=== PATIENT | female | born 1960 | race Caucasian/White ===

== ENCOUNTER 2017-09-08 11:24 | Day surgery (SDC) | payer OTHER, SELFPAY ==
--- NOTE | 2017-09-08 | PATH_ITS ---
[facility] Accession Number: [id number] . 01 Material submitted: . POLYP AT 25CM . 02 Diagnosis: Colon, Polyp at 25 cm, Biopsy: Hyperplastic polyp. [facility]/09/10/2017 . 02 Electronically signed: . Annel Galindo MD, Pathologist NPI- [id number] . 01 Gross description: . POLYP AT 25CM: Received in formalin are 2 fragment(s) of reeves, soft tissue measuring 0.4 x 0.2 x 0.1 cm to 0.3 x 0.2 x 0.1 cm submitted entirely in 1 cassette(s) /TRC /TRC . 02 Pathologist provided ICD-10: K63.5 . 02 CPT . 538399 Performed at: 01 [facility] [address] [facility], [place], [place] [id number] MD Rafiq Henning MD Phone: [phone] Performed at: 02 [facility] [address] [place], [place] [id number] MD Luis Heredia MD Phone: [phone]
[2017-09-08 11:45] VITALS: BP 144/86; PULSE 55; RESP 15; TEMP 36.4; O2SAT 97; BMI 36.1
--- NOTE | 2017-09-08 13:18 | PM.HP.1 ---
History of Present Illness Chief complaint: colonoscopy [id number] Narrative: Clare Appiah is a 56 year old female who presents today for screening colonoscopy. She has a strong family history of colon cancer affecting her brother who at the age of 36 with the disease. She also has multiple other family members who have with colon cancer. She denies any problems or symptoms related to the function of her GI tract. Her last colonoscopy was 5 years ago and benign polyps were removed at that time. Patient History Family & Social History Family History: Reviewed 09/08/17 by Roshni Ayala MD Social History: household members spouse Prior Living Arrangements House Meds Home Medications Medication Instructions Recorded Confirmed Type atenolol 25 mg PO BID 09/08/17 09/08/17 History Allergies Allergy/AdvReac Type Severity Reaction Status Date / Time cephalexin [From KEFLEX] Allergy Severe THROAT Unverified 07/22/17 12:12 SWELLS Penicillins [PENICILLINS] Allergy Severe THROAT Unverified 07/22/17 12:12 SWELLS codeine [CODEINE] Allergy Intermediate GIVES HER Unverified 07/22/17 12:12 A MIGRAINE bee venom protein (honey bee) Allergy Unknown Unverified 07/22/17 12:12 [BEE VENOM PROTEIN (HONEY BEE)] Fish Containing Products Allergy Unknown Unverified 07/22/17 12:12 [FISH CONTAINING PRODUCTS] levofloxacin [From LEVAQUIN] Allergy Unknown Unverified 07/22/17 12:12 verapamil [VERAPAMIL] Allergy Unknown Unverified 07/22/17 12:12 Review of Systems Review of Systems All systems reviewed & are unremarkable except as noted in HPI and below Exam Vital Signs (past 8 hours): Vital Signs - 8 hr 09/08/17 11:45 Temperature 97.5 F L Pulse Rate 55 L Respiratory Rate 15 Blood Pressure 144/86 H Pulse Oximetry 97 Pulse Oximetry 97 Oxygen Delivery Method Room Air Narrative Exam Narrative: Very pleasant lady in no obvious distress. HEENT: Normocephalic and atraumatic, pupils equal round reactive to light accommodation with anicteric sclera. Lungs: Clear to auscultation bilaterally Heart: Regular rate and rhythm Abdomen: Soft, nontender, active bowel sounds. Extremities: Warm well perfused Assessment & Plan Plan: Plan: Very pleasant and generally healthy 56-year-old lady with a personal history of colon polyps and a family history of colon cancer in 1st and second-degree relatives. We have discussed the risks and benefits of colonoscopy the patient expressed desire to have the procedure today.
--- NOTE | 2017-09-08 13:22 | P.HP_ITS ---
History of Present Illness Chief complaint: colonoscopy [id number] Narrative: Clare Appiah is a 56 year old female who presents today for screening colonoscopy. She has a strong family history of colon cancer affecting her brother who at the age of 36 with the disease. She also has multiple other family members who have with colon cancer. She denies any problems or symptoms related to the function of her GI tract. Her last colonoscopy was 5 years ago and benign polyps were removed at that time. Patient History Family & Social History Family History: Reviewed 09/08/17 by Roshni Ayala MD Social History: household members spouse Prior Living Arrangements House Meds Home Medications Medication Instructions Recorded Confirmed Type atenolol 25 mg PO BID 09/08/17 09/08/17 History Allergies Allergy/AdvReac Type Severity Reaction Status Date / Time cephalexin [From KEFLEX] Allergy Severe THROAT Unverified 07/22/17 12:12 SWELLS Penicillins [PENICILLINS] Allergy Severe THROAT Unverified 07/22/17 12:12 SWELLS codeine [CODEINE] Allergy Intermediate GIVES HER Unverified 07/22/17 12:12 A MIGRAINE bee venom protein (honey bee) Allergy Unknown Unverified 07/22/17 12:12 [BEE VENOM PROTEIN (HONEY BEE)] Fish Containing Products Allergy Unknown Unverified 07/22/17 12:12 [FISH CONTAINING PRODUCTS] levofloxacin [From LEVAQUIN] Allergy Unknown Unverified 07/22/17 12:12 verapamil [VERAPAMIL] Allergy Unknown Unverified 07/22/17 12:12 Review of Systems Review of Systems All systems reviewed & are unremarkable except as noted in HPI and below Exam Vital Signs (past 8 hours): Vital Signs - 8 hr 3 09/08/17 11:45 Temperature 97.5 F L Pulse Rate 55 L Respiratory Rate 15 Blood Pressure 144/86 H Pulse Oximetry 97 Pulse Oximetry 97 Oxygen Delivery Method Room Air Narrative Exam Narrative: Very pleasant lady in no obvious distress. HEENT: Normocephalic and atraumatic, pupils equal round reactive to light accommodation with anicteric sclera. Lungs: Clear to auscultation bilaterally Heart: Regular rate and rhythm Abdomen: Soft, nontender, active bowel sounds. Extremities: Warm well perfused Assessment & Plan Plan: Plan: Very pleasant and generally healthy 56-year-old lady with a personal history of colon polyps and a family history of colon cancer in 1st and second-degree relatives. We have discussed the risks and benefits of colonoscopy the patient expressed desire to have the procedure today.
[2017-09-08] MEDS: fentaNYL 250 MCG/5 ML INJ IV (13:26)
--- NOTE | 2017-09-08 13:46 | PM.OP.1 ---
Operative Date/Time/Diagnoses - Date of procedure: 09/08/17 Time of procedure: 13:46 Pre-op diagnosis: Screening Personal history of colon polyps Family history of colon cancer in first-degree relative Post-op diagnosis: same Procedure & Clinicians Procedure: Colonoscopy to the cecum with polypectomy x1 Same procedure as scheduled: Yes Indications: Last colonoscopy 5 years ago Surgeon: Roshni Ayala Click Yes if Unassisted: Yes Anesthesia Type: Sedation (Versed 5 mg; fentanyl 150 mcg) Operative Notes Findings: 1. Excellent prep 2. A single sessile polyp at 25 cm from the anal verge covered with mucous 3. Significant diverticulosis in the sigmoid colon with most concentrated disease at the junction of descending and sigmoid colons 4. Otherwise normal colonic mucosa 5. Grade 1 internal hemorrhoids Closure Type: not applicable Estimated Blood Loss (mL): 1 Procedure in detail: After obtaining informed consent, the patient was brought to the GI suite and placed in the left lateral decubitus position on the examination table. After placement of appropriate monitors, the patient was given incremental doses of Versed and Fentanyl until an appropriate level of sedation was achieved. A time out was held per SCOAP protocol. A digital rectal examination was performed and did not reveal any masses or obstructing lesions. The colonoscope was gently passed into the patient's anus and the entire colon navigated to the level of the cecum with minimal difficulty. Once in the cecum, the scope was withdrawn being sure to go before and beyond all mucosal folds and prominences and get an excellent examination. The findings are noted above. At the level of the rectal vault, the scope was retroflexed and the internal anal canal was examined. The scope was straightened and air aspirated from the colon. The instrument was removed from the patient's body and the procedure was concluded. The patient was allowed to awaken from sedation without difficulty and taken to the post-anesthesia care unit in good condition. Total sedation time 24 min Total withdrawal time 9 min Complications: none Condition: stable Disposition: PACU Plan for aftercare: 1. Discharge to home 2. Plan for next colonoscopy in 5 years or as clinically indicated
[2017-09-08 13:56] VITALS: BP 113/76; PULSE 65; RESP 16; TEMP 37.5; O2SAT 96
[2017-09-08 14:10] VITALS: BP 113/76; PULSE 65; RESP 16; TEMP 37.5; O2SAT 96
== END 2017-09-08 14:21 | disposition home or self-care (01) ==
PROVIDERS: Family Provider Family Medicine; PCP Family Medicine; Visit Provider Surgery
PROC: 0DJD8ZZ Inspection of Lower Intestinal Tract, Via Natural or Artificial Opening Endoscopic (ICD-10-PCS; CPT 45378; principal; 2017-09-08 13:00)
DX: Z12.11 Encounter for screening for malignant neoplasm of colon (principal); Z86.010 Personal history of colon polyps; Z80.0 Family history of malignant neoplasm of digestive organs; K64.0 First degree hemorrhoids; K57.30 Diverticulosis of large intestine without perforation or abscess without bleeding; D12.5 Benign neoplasm of sigmoid colon
CPT/HCPCS: 45380; 99152; 99153; J3010

== ENCOUNTER → 2017-09-23 08:40 | Outpatient (CLI) | payer OTHER, SELFPAY ==
--- NOTE | 2017-09-23 | DI.CT.S_ITS ---
PROCEDURE: CT SOFT TISSUE NECK WO CON INDICATIONS: LUMP IN NECK TECHNIQUE: , By the request of the referring physician. Non-contrast 3.0 mm axial sections acquired from the sella to the aortic arch. Additional oblique axial 3.0 mm sections acquired through the pharynx. 3 mm thick coronal and sagittal reformats were generated. For radiation dose reduction, the following was used: automated exposure control. COMPARISON: [facility], , C-SPINE W&WO CONTRAST, 03/04/2017, 16:00. FINDINGS: Image quality: Excellent. Lymph nodes: No enlarged lymph nodes seen throughout the neck. Vessels: Non-opacified vessels appear normal in caliber. Neck spaces: The area of clinical concern for a mass involving the left lateral neck is marked by a skin marker. Immediately deep to this marker, there is a focus of encapsulated fat that measures 2.1 x 0.7 cm in greatest axial dimension. Small lymph nodes can also be seen within this region, yet without enlargement or suspicious features. The oropharynx, nasopharynx, and pharynx demonstrate no mucosal lesions. The vocal cords, false vocal cords, pyriform sinuses, epiglottis, vallecula, and tongue base all appear normal. Extramucosal spaces appear unremarkable. Glands: The parotid and submandibular glands appear normal, without stones. Thyroid gland demonstrates no significant noncontrast abnormality. Miscellaneous: Visualized brain and orbits appear normal. Lung apices appear clear. Superficial soft tissues appear normal. 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 Dictated by: Cm Wakefield M.D. on 09/23/2017 at 8:46 Approved by: Cm Wakefield M.D. on 09/23/2017 at 8:51
== END ==
PROVIDERS: Family Provider Family Medicine; PCP Family Medicine; Visit Provider Family Medicine
DX: D17.0 Benign lipomatous neoplasm of skin and subcutaneous tissue of head, face and neck (principal)
CPT/HCPCS: 70490; Q9967

== ENCOUNTER → 2018-02-09 10:00 | Outpatient (CLI) | payer OTHER, SELFPAY ==
--- NOTE | 2018-02-09 | DI.CT.S_ITS ---
PROCEDURE: CT CHEST WO CON INDICATIONS: SOLITARY PULMONARY NODULE TECHNIQUE: Noncontrast 2.0-2.5 mm thick sections acquired from the pulmonary apices to the posterior costophrenic angles. 7 mm thick coronal and sagittal MIP reformats were then acquired. A low radiation dose technique was utilized. COMPARISON: [facility], CT, ABDOMEN/PELVIS WITH CONTRAST, 12/10/2008, 18:55. [facility], CT, CT-IVP, 02/27/2010, 9:09. [facility], CT, THORAX WITHOUT CONTRAST, 12/19/2014, 12:35. [facility], CT, THORAX WITHOUT CONTRAST, 01/22/2016, 8:36. [facility], CT, CT SOFT TISSUE NECK WO CON, 09/23/2017, 8:45. FINDINGS: Image quality: Diagnostic, given the low radiation dose technique. Lungs and pleura: There is a 4 mm nodule in the left lower lobe, unchanged since 02/27/2010, consistent with a benign nodule. There are inguinal scars and/or atelectasis. Mediastinum: Heart size is normal. No pericardial effusion. No mediastinal adenopathy by size criteria. Thoracic aorta and central pulmonary arteries are normal in size. Esophagus is normal in caliber. Tiny hiatal hernia. Bones and chest wall: No suspicious bony lesions. No vertebral body compression fractures. No axillary or supraclavicular adenopathy by size criteria. Thyroid gland is normal as visualized. Abdomen: Visualized upper abdomen solid organs and bowel loops appear normal in the absence of contrast. IMPRESSION: Stable 4 mm left lower lobe lung nodule is 2010, consistent with a benign nodule. No further followup suggested. Fleischner Society criteria for SOLID lung nodule followup. Nodule size (mm)Low-risk patientHigh-risk patient<6 (single or multiple)No routine followup.Optional CT at 12 months. 6-8 (single or multiple)CT at 6-12 months, then optional CT at 18-24 mo.CT at 6-12 months, then CT at 18-24 months. >8 (single)CT at 3 months, PET-CT, or biopsy. Same as for low-risk pts. >8 (multiple)CT at 3-6 months, then optional CT at 18-24 mo.CT at 3-6 months, then CT at 18-24 months. Fleischner Society criteria for SUB-SOLID lung nodule followup. Solitary pure ground-glass nodules<6 mm (ground glass or part solid)No followup needed. 6 mm or larger (ground glass)CT at 6-12 months to confirm persistence, then CT every 2 years until 5 years.6 mm or larger (part solid)CT at 3-6 months to confirm persistence, then annual CT until 5 years if unchanged and solid component remains <6 mm. Multiple sub-solid nodules<6 mmCT at 3-6 months, then CT consider at 2 & 4 years for high risk patients. [address] at 3-6 months. Subsequent management based on most suspicious lesions. Recommendations do not apply to lung cancer screening, patients with immunosuppression, or patients with known primary cancer. Dictated by: Shon Lanza M.D. on 02/09/2018 at 11:25 Approved by: Shon Lanza M.D. on 02/09/2018 at 11:31
== END ==
PROVIDERS: Family Provider Family Medicine; PCP Family Medicine; Visit Provider Family Medicine
DX: R91.1 Solitary pulmonary nodule (principal)
CPT/HCPCS: 71250; 99214

== ENCOUNTER → 2018-02-22 08:36 | Outpatient (CLI) | payer OTHER, SELFPAY ==
--- NOTE | 2018-02-22 08:37 | DI.MRI.S_ITS ---
PROCEDURE: MR HEAD/BRAIN WO/W CON INDICATIONS: New Daily Persistent TECHNIQUE: Noncontrast axial T1 spin echo, axial T2 fast spin echo, sagittal and axial FLAIR, coronal T2 fast spin echo, axial gradient echo, axial diffusion and ADC through the brain. After the administration of contrast, axial and coronal 3D VIBE or T1 spin echo with fat saturation through the brain. COMPARISON: [facility], MR, BRAIN W&WO CONTRAST, 03/04/2017, 16:00. [facility], CT, HEAD WITHOUT CONTRAST, 01/15/2015, 16:52. FINDINGS: Image quality: Excellent. CSF Spaces: Basal cisterns are patent. No extra-axial fluid collections. Ventricles are normal in size and shape. Brain: No midline shift. No intracranial bleeds or masses. No abnormal intracranial enhancement. The brainstem appears normal. Diffusion-weighted images demonstrate no acute ischemic insults. No chronic ischemic insults. Normal intravascular flow voids are present. Skull and face: Calvarial marrow is normal in signal. Orbits appear normal. Sinuses: Sinuses and mastoids appear clear. Incidental note is made of a right sided ebony bullosa, with mild leftward nasal septal deviation. IMPRESSION: No imaging explanation is found for this patient's presenting history of a persistent daily headache. No masses or abnormal enhancement can be seen. Dictated by: Cm Wakefield M.D. on 02/22/2018 at 10:51 Approved by: Cm Wakefield M.D. on 02/22/2018 at 10:53
== END ==
PROVIDERS: PCP Family Medicine; Visit Provider Specialist
DX: R51 Headache (principal)
CPT/HCPCS: 70553

== ENCOUNTER 2020-03-29 18:31 | Emergency (ER) | payer OTHER, MEDICAID, SELFPAY ==
[2020-03-29 18:35] VITALS: BP 180/87; PULSE 88; RESP 16; TEMP 37; O2SAT 100
[2020-03-29 21:04] LABS: Add Manual Diff / Slide Review NO; Basophils Absolute Auto 100 /uL (0-100); Basophils Percent Auto 1.1 % (0-2); Eosinophils Absolute Auto 100 /uL (0-450); Eosinophils Percent Auto 0.9 % (2-4); Hemoglobin 13.6 g/dL (12.0-16.0); Lymphocytes Absolute Auto 2100 /uL (1100-4500); Lymphocytes Percent Auto 22.4 % (25-40); Mean Corpuscular HGB Conc 33.1 % (30-36); Mean Corpuscular Hemoglobin 28.4 PG (26-34); Mean Corpuscular Volume 85.7 fL (80-100); Monocytes Absolute Auto 500 /uL (0-900); Monocytes Percent Auto 5.2 % (3-14); Neutrophils Absolute Auto 6700 /uL (1500-7000); Neutrophils Percent Auto 70.4 % (50-75); Platelet Count 243 X10^3/uL (150-400); Prothrombin Time 11.7 SECONDS (10.1-12.7); Red Blood Cell Count 4.78 X10^6/uL (4.0-5.2); Red Cell Distribution Width 13.1 % (11.6-14.8); White Blood Cell Count 9.5 X10^3/uL (4.5-11.0)
[2020-03-29 21:06] LABS: PTT Partial Thromboplastin Tim 33 SECONDS (26.4-36.2)
[2020-03-29 21:08] LABS: Alanine Aminotransferase 24 IU/L (<35); Albumin 4.2 g/dL (3.5-5.0); Albumin Globulin Ratio 1.4 (1.0-2.8); Alkaline Phosphatase 98 U/L (38-126); Aspartate Aminotransferase 28 IU/L (14-36); BUN Creatinine Ratio 14.7 (6-22); Bilirubin Total 0.3 mg/dL (0.2-1.3); Blood Urea Nitrogen 11 mg/dL (7-17); Calcium 9.4 mg/dL (8.4-10.2); Carbon Dioxide 31 mmol/L (22-32); Chloride 104 mmol/L (98-107); Estimated Glomerular Filt Rate > 60.0 mL/min (>60); Globulin 3.1 g/dL (1.7-4.1); Glucose 104 mg/dL (70-100); HEMOLYSIS < 15 (0-50); Lipase 59 U/L (23-300); Potassium 3.7 mmol/L (3.4-5.1); Sodium 139 mmol/L (137-145); Total Protein 7.3 g/dL (6.3-8.2)
--- NOTE | 2020-03-29 21:35 | DI.US.S_ITS ---
PROCEDURE: US ABDOMEN LIMITED INDICATIONS: Right upper quadrant pain TECHNIQUE: Real-time focused scanning was performed of the abdomen, with image documentation. COMPARISON: None. FINDINGS: There is sonographically normal. Gallbladder is sonographically normal. No gallstones. No gallbladder wall thickening with gallbladder wall measuring 2.5 millimeters. No pericholecystic fluid. No sonographic Fairchild sign. Biliary tree is nondilated. Common bile duct measures 2.4 millimeters. Scattered fatty infiltration in the pancreas. Pancreas is otherwise sonographically normal. No ascites. IMPRESSION: No sonographic evidence of cholelithiasis or cholecystitis. If there is continued clinical concern for cholecystitis, a nuclear medicine HIDA scan should be considered for further evaluation. Dictated by: Paige Morfin MD, PhD on 03/30/2020 at 7:03 Approved by: Paige Morfin MD, PhD on 03/30/2020 at 7:04
--- NOTE | 2020-03-29 21:35 | ED.ABDPAIN ---
HPI - Abdominal Pain General Chief Complaint: Abdominal Pain Stated Complaint: states abdominal issue Time Seen by Provider: 03/29/20 21:27 Source: patient and family Mode of arrival: Ambulatory History of Present Illness HPI narrative: Patient here with . Complains of constant right upper quadrant pain worse with eating. Ongoing 1 week. Radiates to the right shoulder and right middle back. Nausea but no vomiting. No cough cold congestion or fever chills. No diarrhea. MD complaint: abdominal pain Location: RUQ Related Data Home Medications Medication Instructions Recorded Confirmed atenolol 25 mg PO BID 09/08/17 07/08/18 epinephrine 0.1 mg/0.1 mL IM each 02/09/18 07/08/18 injection, auto-injector Previous Rx's Medication Instructions Recorded amantadine HCl 100 mg capsule 100 mg PO BID #60 cap 08/24/18 naltrexone 50 mg tablet 5 mg PO DAILY #30 tab MDD 2.5 mg 10/26/18 hydrocodone-acetaminophen 1 tab PO Q6H PRN #12 tab 03/30/20 ondansetron 4 mg PO Q8H PRN #10 tab 03/30/20 Allergies Allergy/AdvReac Type Severity Reaction Status Date / Time bee venom protein (honey bee) Allergy Severe anaphalaxis Verified 03/29/20 18:40 [BEE VENOM PROTEIN (HONEY BEE)] cephalexin [From KEFLEX] Allergy Severe THROAT Verified 03/29/20 18:40 SWELLS Fish Containing Products Allergy Severe anaphalaxis Verified 03/29/20 18:40 [FISH CONTAINING PRODUCTS] Penicillins [PENICILLINS] Allergy Severe THROAT Verified 03/29/20 18:40 SWELLS codeine [CODEINE] Allergy Intermediate GIVES HER Verified 03/29/20 18:40 A MIGRAINE levofloxacin [From LEVAQUIN] Allergy Unknown Verified 03/29/20 18:40 verapamil [VERAPAMIL] Allergy Unknown Verified 03/29/20 18:40 Review of Systems Review of Systems Narrative: GENERAL: Denies chills, fatigue, malaise, fever, sweats. HEENT: Denies sinus pain, ear pain, sore throat, difficulty swallowing RESPIRATORY: Denies dyspnea, cough CARDIOVASCULAR: Denies chest pain, palpitations, edema, GASTROINTESTINAL: Complains nausea, denies vomiting, complaint abdominal pain, denies diarrhea, constipation, melena. : Denies dysuria, frequency, hematuria MUSCULOSKELETAL: denies muscle or bony pain SKIN: Denies rash, skin lesions NEUROLOGIC: Denies weakness, headache, numbness, change in speech, confusion PSYCHIATRIC: No SI or HI or hallucinations ROS Unobtainable: All systems reviewed & are unremarkable except as noted in HPI and below Patient History Social History household members: spouse Smoking Status: Smoker, status unknown Smoking Status: Smoker, status unknown Substance Use Type: does not use Exam Narrative Exam Narrative: GENERAL: patient appears stated age. Well-nourished, well-developed patient, in no distress, not toxic not dyspneic HEAD: Normocephalic. EYES: Pupils equal round and reactive. No scleral icterus. No injection no discharge, no icterus ENT: Mucous membranes moist. No drooling no tongue elevation no trismus no malocclusion NECK: Trachea midline. Non tender CARDIOVASCULAR: Regular rate and rhythm without murmurs, gallops, or rubs. RESPIRATORY: Clear to auscultation. Breath sounds equal bilaterally. No wheezes, rales, or rhonchi. GASTROINTESTINAL: Abdomen soft, reproducible right upper quadrant tenderness. Positive Fairchild sign. No peritoneal signs. Bowel sounds present. EXTREMITIES: No gross deformities. BACK: Nontender without deformity or crepitance. No flank tenderness. NEURO: AOx4. SKIN: Warm and dry, not jaundiced PSYCH: Not anxious, is cooperative Initial Vital Signs Initial Vital Signs: Vital Signs Temperature 98.6 F 03/29/20 18:35 Pulse Rate 88 03/29/20 18:35 Respiratory Rate 16 03/29/20 18:35 Blood Pressure 180/87 H 03/29/20 18:35 Pulse Oximetry 100 03/29/20 18:35 Course Orders Ordered: ED Orders 03/29/20 18:40 EKG-12 Lead Stat 03/29/20 20:48 Complete Blood Count AUTO DIFF Stat Comprehensive Metabolic Panel Stat Lipase Stat Partial Thromboplastin Time Stat Prothrombin Time INR Stat 03/29/20 21:35 US abdomen limited Stat 03/29/20 23:00 CT abdomen pelvis w con Stat Discontinued Medications Hydrocodone Bitart/Acetaminophen (Hydrocodone/Acet 5/325 Prepack) 1 bottle MISC SEEINSTR ONE Stop: 03/30/20 00:18 Last Admin: 03/30/20 00:46 Dose: 1 bottle Documented by: OTILIA Morphine Sulfate (Morphine 4 Mg/Ml Inj) 4 mg IV NOW ONE Stop: 03/29/20 21:37 Last Admin: 03/29/20 21:43 Dose: 4 mg Documented by: RICHARDSON Morphine Sulfate (Morphine 4 Mg/Ml Inj) 4 mg IV NOW ONE Stop: 03/29/20 23:01 Last Admin: 03/29/20 23:09 Dose: 4 mg Documented by: ONEL Ondansetron HCl (Ondansetron 4 Mg/2 Ml Inj) 4 mg IV NOW ONE Stop: 03/29/20 21:37 Last Admin: 03/29/20 21:43 Dose: 4 mg Documented by: RICHARDSON Reevaluation(s) Reevaluation #1: Pain control at this time. No nausea or vomiting. Reviewed results with patient and . They agree with treatment plan for follow-up with primary care and referral to general surgeon. Will need HIDA scan. Time: 00:14 Vital Signs Vital signs: Vital Signs - 8 hr 03/29/20 22:30 03/30/20 00:46 Pulse Rate 78 62 Respiratory Rate 18 Blood Pressure 151/70 H 140/77 Pulse Oximetry 96 97 MDM - Abdominal Pain Differential Diagnosis Differential diagnosis: Likely abdominal pain, pancreatitis and other (Cholecystitis) Lab Data Attestation: I reviewed the patient's lab results. Result diagrams: 03/29/20 20:48 03/29/20 20:48 Labs: Lab Results 03/29/20 03/29/20 03/29/20 Range/Units 20:48 20:48 20:48 WBC 9.5 (4.5-11.0) X10^3/uL RBC 4.78 (4.0-5.2) X10^6/uL Hgb 13.6 (12.0-16.0) g/dL Hct 41.0 (36-46) % MCV 85.7 (80-100) fL MCH 28.4 (26-34) PG MCHC 33.1 (30-36) % RDW 13.1 (11.6-14.8) % Plt Count 243 (150-400) X10^3/uL Neut % (Auto) 70.4 (50-75) % Lymph % (Auto) 22.4 L (25-40) % [place] % (Auto) 5.2 (3-14) % Eos % (Auto) 0.9 L (2-4) % Baso % (Auto) 1.1 (0-2) % Neut # (Auto) 6700 (4629-6634) /uL Lymph # (Auto) 2100 (4413-3653) /uL [place] # (Auto) 500 (0-900) /uL Eos # (Auto) 100 (0-450) /uL Baso # (Auto) 100 (0-100) /uL PT 11.7 (10.1-12.7) SECONDS INR 1.0 (0.9-1.3) APTT 33 (26.4-36.2) SECONDS Sodium 139 (137-145) mmol/L Potassium 3.7 (3.4-5.1) mmol/L Chloride 104 (98-107) mmol/L Carbon Dioxide 31 (22-32) mmol/L BUN 11 (7-17) mg/dL Creatinine 0.75 (0.52-1.04) mg/dL Estimated GFR > 60.0 (>60) mL/min BUN/Creatinine Ratio 14.7 (6-22) Glucose 104 H (70-100) mg/dL Calcium 9.4 (8.4-10.2) mg/dL Total Bilirubin 0.3 (0.2-1.3) mg/dL AST 28 (14-36) IU/L ALT 24 (<35) IU/L Alkaline Phosphatase 98 (38-126) U/L Total Protein 7.3 (6.3-8.2) g/dL Albumin 4.2 (3.5-5.0) g/dL Globulin 3.1 (1.7-4.1) g/dL Albumin/Globulin Ratio 1.4 (1.0-2.8) Lipase 59 (23-300) U/L Imaging Data US - abdomen: Radiologist's Impression: Faxed results. No acute abnormality ultrasound of the abdomen. No gallstones pericholecystic fluid or gallbladder wall thickening. No biliary dilatation CT scan - abdomen/pelvis: Radiologist's Impression: CT scan results faxed. No acute findings. Normal appendix. No bowel wall thickening or dilatation. Unremarkable gallbladder. ECG Data Attestation: I personally reviewed and interpreted this ECG as follows: Interpretation: Normal sinus rhythm rate [address] elevation or depression MDM Narrative Medical decision making narrative: Appropriate for discharge home. Normal liver enzymes and imaging. Normal white cell count. No fever. Pain is controlled. Discharge Plan Departure Patient Disposition: Home Clinical Impression: Abdominal pain Qualifiers: Abdominal location: right upper quadrant Qualified Code(s): R10.11 - Right upper quadrant pain Instructions: DI for Abdominal Pain-Adult Activity Restrictions/Additional Instructions: No driving or operating machinery tonight. See family doctor within a week for recheck and to schedule HIDA scan of the gallbladder. Also call provided general surgeon office tomorrow for office appointment next week for re-evaluation of your gallbladder. Return if worse or if any questions or concerns. Prescriptions: New hydrocodone-acetaminophen 5-325 mg tablet 1 tab PO Q6H PRN (Reason: pain) Qty: 12 RF: 0 ondansetron 4 mg tablet,disintegrating 4 mg PO Q8H PRN (Reason: nausea and vomiting) Qty: 10 RF: 0 No Action atenolol 25 MG tablet 25 mg PO BID RF: 0 epinephrine 0.1 mg/0.1 mL auto-injector IM RF: 0 amantadine HCl 100 mg capsule 100 mg PO BID Qty: 60 RF: 5 naltrexone 50 mg tablet 5 mg PO DAILY MDD 2.5 mg Qty: 30 RF: 2 Referrals: Mikhail Ledezma MD [Physician] - Tho Wyman MD [Primary Care Provider] -
[2020-03-29] MEDS: MORPHINE 4 MG/ML INJ IV ×2 (21:43→23:09)
[2020-03-29] MEDS: ONDANSETRON 4 MG/2 ML INJ IV (21:43)
[2020-03-29 22:30] VITALS: BP 151/70; PULSE 78; O2SAT 96
--- NOTE | 2020-03-29 23:00 | DI.CT.S_ITS ---
PROCEDURE: CT ABDOMEN PELVIS W CON INDICATIONS: right/central abdominal pain TECHNIQUE: After the administration of intravenous contrast, 5 mm thick sections acquired from the diaphragm to the symphysis. 5 mm coronal and sagittal reformats were acquired. For radiation dose reduction, the following was used: automated exposure control, adjustment of mA and/or kV according to patient size. COMPARISON: CT, KIDNEY/ URETER/BLADDER, 12/13/2014, 11:14. FINDINGS: Image quality: Excellent. ABDOMEN: Lung bases: There is minimal dependent atelectasis. Heart size is normal. Solid organs: Evaluation of the liver demonstrates no focal hepatic lesions. The gallbladder appears within normal limits without calcified gallstones. Biliary system is non-dilated. Pancreas enhances normally. No peripancreatic fat stranding or fluid collections. No pancreatic duct dilatation. The spleen is normal in size. No adrenal nodules. Kidneys demonstrate no hydronephrosis. Peritoneum and bowel: Bowel loops demonstrate normal wall thickness and caliber. The appendix is normal in appearance. There is colonic diverticulosis without acute diverticulitis. No free fluid or air. Nodes and vessels: No retroperitoneal or mesenteric adenopathy by size criteria. Aorta and inferior vena cava are normal in size. Miscellaneous: No ventral hernias. PELVIS: Genitourinary: Bladder wall thickness is normal. Miscellaneous: No inguinal hernias or adenopathy. Bones: No suspicious bony lesions. No vertebral body compression fractures. IMPRESSION: 1. No definite acute intra-abdominal abnormality. Specifically, no evidence of acute appendicitis. 2. Colonic diverticulosis without acute diverticulitis. Dictated by: Rafiq Gaspar M.D. on 03/30/2020 at 9:23 Approved by: Rafiq Gaspar M.D. on 03/30/2020 at 9:35
[2020-03-30 00:46] VITALS: BP 140/77; PULSE 62; RESP 18; O2SAT 97
[2020-03-30] MEDS: HYDROCODONE/ACET 5/325 PREPACK 1 BOTTLE MISC (00:46)
== END 2020-03-30 00:50 | disposition home or self-care (01) ==
PROVIDERS: Emergency Provider Emergency Medicine; PCP Family Medicine
DX: R10.11 Right upper quadrant pain (principal); R11.0 Nausea; I10 Essential (primary) hypertension
CPT/HCPCS: 36415; 74177; 76705; 80053; 83690; 85025; 85610; 85730; 93005; 93010; 96374; 96375; 96376; 99284; J2270; J2405; Q9967

== ENCOUNTER → 2020-05-04 09:43 | Outpatient (CLI) | payer OTHER, MEDICAID, SELFPAY ==
--- NOTE | 2020-05-04 | DI.NM.S_ITS ---
PROCEDURE: NM HIDA WITH CCK PHARMACEUTICAL: 5.5 mCi Tc-99m mebrofenin IV; 1.1 mcg CCK IV. INDICATIONS: Epigastric pain TECHNIQUE: Following intravenous administration of Tc-99m mebrofenin, sequential anterior abdominal images were obtained. To evaluate the contractile response of the gallbladder in response to Cholecystokinin (CCK), sincalide (0.02 ?g/kg) was administered by slow intravenous infusion approximately 60 minutes after the administration of the radiopharmaceutical. Sequential imaging was continued for 30 minutes after the start of CCK infusion. Gallbladder ejection fraction was calculated. COMPARISON: [facility], US, US ABDOMEN LIMITED, 03/29/2020, 22:05. [facility], CT, CT ABDOMEN PELVIS W CON, 03/29/2020, 23:01. FINDINGS: Biliary scan: There is normal tracer uptake and excretion by the liver. There is normal visualization of the intrahepatic ducts, common bile duct, and gallbladder. There is normal tracer transit into the duodenum. CCK stimulation: There is normal contractile response of the gallbladder to CCK infusion. The calculated gallbladder ejection fraction is 94%; normal values are above 35%. It has been shown that any patient abdominal pain after CCK administration is related to the rate of CCK injection, rather than to any underlying gallbladder disease (Clinical Nuclear Medicine 2012; 37: 63-70. Journal of Nuclear Medicine 2014; 55: 1-9). IMPRESSION: 1. Normal filling of gallbladder. No evidence for acute cholecystitis. 2. Normal contractile response of gallbladder to CCK stimulation. Dictated by: Shon Lanza M.D. on 05/04/2020 at 12:06 Approved by: Shon Lanza M.D. on 05/04/2020 at 12:09
== END ==
PROVIDERS: PCP Family Medicine; Referring Provider Family Medicine; Visit Provider Family Medicine
DX: R10.13 Epigastric pain (principal)
CPT/HCPCS: 78227; A9537; J2805

== ENCOUNTER 2020-05-17 12:31 | Day surgery (SDC) | payer OTHER, MEDICAID, SELFPAY ==
--- NOTE | 2020-05-17 | PATH_ITS ---
[facility] Accession Number: [id number] . 01 Material submitted: . duodenum - DUODENAL . 02 Diagnosis: Duodenum, Biopsy: Duodenal mucosa with patchy gastric surface foveolar metaplasia consistent with peptic duodenitis. Negative for intraepithelial lymphocytosis or villous blunting. Negative for dysplasia and malignancy. [facility] 05/21/2020 1719 Local . 02 Electronically signed: . Annel Galindo MD, Pathologist NPI- [id number] . 01 Gross description: . DUODENAL: Received in formalin are 2 fragment(s) of reeves, soft tissue measuring 0.4 x 0.2 x 0.1 cm to 0.4 x 0.1 x 0.1 cm submitted entirely in 1 cassette(s) /QBJ 05/19/2020 0922 Local . 02 Pathologist provided ICD-10: R10.9 . 02 CPT . 078719 Performed at: 01 [facility] [address] [facility], [place], [place] [id number] MD Rafiq Henning MD Phone: [phone] Performed at: 02 [facility] [address] [place], [place] [id number] MD Annel Galindo MD Phone: [phone]
[2020-05-17 13:00] VITALS: BP 135/87; PULSE 104; RESP 17; TEMP 36.3; O2SAT 98; BMI 31.6
[2020-05-17] MEDS: LACTATED RINGERS 1,000 ML 200 ML IV (13:20)
--- NOTE | 2020-05-17 13:41 | PM.PREOP ---
Pre-operative Note Interval Note History & Physical reviewed/Exam performed by Physician: Yes Changes to H&P: No
[2020-05-17] MEDS: LIDOCAINE 4% SOLN 50 ML 20 ML TOP (14:00)
[2020-05-17] MEDS: MIDAZOLAM 5 MG/5 ML VIAL IV (14:00)
[2020-05-17] MEDS: fentaNYL 250 MCG/5 ML INJ IV (14:00)
--- NOTE | 2020-05-17 14:36 | PM.OP.ENDO ---
Operative Date/Time/Diagnoses Date of procedure: 05/17/20 Time of procedure: 14:36 Pre-op diagnosis: Abdominal pain Post-op diagnosis: other (Duodenitis) Procedure & Clinicians Study performed: Esophagoduodenoscopy Colonoscopy Same procedure as scheduled: Yes Indications: 59-year-old woman with generalized abdominal pain here for EGD and colonoscopy Surgeon: Mikhail Ledezma Procedure Notes Procedure in detail: Patient placed in left lateral decubitus position. Time out was performed. Procedural sedation was administered with Versed and Fentanyl. A bite block was placed. the scope was inserted into the mouth and advanced through the esophagus and into the stomach. The pylorus was intubated. The duodenum was notable for mild duodenitis within the 1st portion and multiple random biopsies of the duodenum were obtained with the biopsy forceps. No analisa duodenal ulcer. The scope was retroflexed within the stomach and there was a small hiatal hernia. No ulcers, or gastritis. The scope was withdrawn into the esophagus the Z line was seen at 35 cm from the incisions. There was no Morejon's esophagitis or masses or strictures. Stomach was desufflated and scope removed. Patient tolerated procedure well. Examination began with a thorough inspection of the perianal area there was no evidence of fissures, fistulae, external hemorrhoids or cutaneous malignancy. The colonoscopy scope was then placed into the anal canal and was advanced to the cecum, which was identified by the ileocecal valve, the appendiceal orifice and the confluence of the taenia. The scope was then slowly withdrawn examining colon thoroughly in all directions, irrigating it of any residual stool. No masses or polyps Sigmoid diverticulosis The patient tolerated the procedure well. They will be discharged once criteria are met. The prep was of good/excellent quality. The withdrawl time was 7 minutes. The sedation time was 36 minutes. Specimen(s): other (Duodenum) Complications: none Impression: Duodenitis Post-procedure Recommendations: Colonscopy in 10 years Plan for aftercare: Start omeprazole 20 mg b.i.d. Follow up: as needed Disposition: same day surgery
[2020-05-17 14:40] VITALS: BP 135/74; PULSE 91; RESP 11; TEMP 36.7; O2SAT 94
[2020-05-17 14:45] VITALS: BP 129/86; PULSE 74; RESP 14; O2SAT 95
[2020-05-17 14:47] VITALS: BP 136/80; PULSE 83; RESP 15; TEMP 36.6; O2SAT 96
--- NOTE | 2020-05-17 14:47 | SUR.PHASEI ---
Stable PACU stay
[2020-05-17 14:54] VITALS: BP 134/85; PULSE 77; RESP 16; TEMP 36.7; O2SAT 97
[2020-05-17 15:15] VITALS: BP 129/85; PULSE 87; RESP 15; TEMP 36.7; O2SAT 93
== END 2020-05-17 15:18 | disposition home or self-care (01) ==
PROVIDERS: PCP Family Medicine; Referring Provider Surgery; Visit Provider Surgery
PROC: 0DJ08ZZ Inspection of Upper Intestinal Tract, Via Natural or Artificial Opening Endoscopic (ICD-10-PCS; CPT 43235; principal; 2020-05-17 13:45)
PROC: 0DJD8ZZ Inspection of Lower Intestinal Tract, Via Natural or Artificial Opening Endoscopic (ICD-10-PCS; CPT 45378; 2020-05-17 13:45)
DX: K29.80 Duodenitis without bleeding (principal); K44.9 Diaphragmatic hernia without obstruction or gangrene
CPT/HCPCS: 43239; 45378; 99152; 99153; J2250; J3010

== ENCOUNTER → 2021-01-09 08:55 | Outpatient (CLI) | payer OTHER, MEDICAID, SELFPAY ==
[2021-01-09 19:17] LABS: Cholesterol 127 mg/dL (140-199); HDL Cholesterol 38 mg/dL (40-60); LDL Cholesterol Calculated 66 mg/dL (<100); Triglycerides 117 mg/dL (35-150)
== END ==
PROVIDERS: PCP Family Medicine; Visit Provider Family Medicine
DX: E78.00 Pure hypercholesterolemia, unspecified (principal)
CPT/HCPCS: 80061

== ENCOUNTER → 2022-03-07 11:09 | Outpatient (CLI) | payer OTHER, SELFPAY ==
--- NOTE | 2022-03-07 11:12 | DI.MRI.S_ITS ---
PROCEDURE: MR KNEE RT WO CON INDICATIONS: fall knee 6 months ago; patella fracture, pain TECHNIQUE: Noncontrast sagittal PD fast spin echo and T2 fast spin echo with fat saturation, sagittal 3-D FLASH with fat saturation; coronal T1 spin echo and PD fast spin echo with fat saturation, and axial PD fast spin echo with fat saturation through the knee. COMPARISON: [facility] ([place] [facility]), CR, XR KNEE RT 3V, 02/28/2022, 10:23. [facility], MR, KNEE WITHOUT CONTRAST, 06/08/2015, 10:05. FINDINGS: Image quality: Excellent. Anterior Cruciate Ligament: Intact. Posterior Cruciate Ligament: Intact. Medial Collateral Ligament: Intact. Lateral Collateral Ligament: Intact. Medial Meniscus: There is horizontal oblique tearing of the body of the medial meniscus extending to the middle third of the tibial articular surface with an inferiorly displaced meniscal flap into the medial tibial gutter. Lateral Meniscus: Intact. Medial and Lateral Tendons: The semimembranosus tendon insertions and meniscocapsular junction appear intact. Visualized portions of the pes anserinus tendons appear normal. No abnormal bursal fluid. The long and short heads of the biceps femoris tendon appear intact. The popliteus tendon appears intact. No signs of posterolateral corner injury. Iliotibial band appears normal. Anterior Structures: The quadriceps and patellar tendons appear intact. No patellar subluxation. No femoral trochlear dysplasia or ventral trochlear prominence. No edema in the infrapatellar fat pad. Bones: Small mildly edematous ossification is seen along the dorsal aspect of the patella with corticated margins, which may represent a degenerative osseous fragment or the sequela of remote prior trauma. Medial Femorotibial Cartilage: Focal full-thickness cartilage loss is seen in the central weight-bearing portion of the medial femoral condyle with subchondral osteophyte formation. Surrounding high-grade partial-thickness cartilage loss is present. Marginal osteophytes are seen. Lateral Femorotibial Cartilage: Partial-thickness cartilage irregularity is seen in the central portion of the lateral compartment with marginal osteophyte formation. Patellofemoral Cartilage: Diffuse full-thickness cartilage loss is seen at the median ridge and lateral facet of the patella as well as at the lateral femoral trochlea with subchondral cystic changes and subchondral edema. Soft Tissues: Small joint effusion is present. There is a trace medial popliteal cyst. There is subcutaneous prepatellar soft tissue edema. Lobular cyst posterior to the intercondylar notch measuring 17 x 11 x 6 mm may represent a parameniscal cyst versus loculated joint fluid or ganglion cyst. The musculature surrounding the knee is normal in bulk. IMPRESSION: 1. Small ununited mildly edematous ossification along the the superior margin of the patella may be related to remote prior trauma versus degenerative changes. 2. Diffuse full-thickness cartilage loss throughout the lateral portion of the patellofemoral compartment with subchondral cystic changes and subchondral edema. Full-thickness cartilage loss is also seen in the medial compartment with subchondral osteophyte formation. There is grade 2-3 chondromalacia in the lateral compartment. Tricompartmental marginal osteophytes are present. 3. Horizontal oblique tearing of the body of the medial meniscus extending to the middle third of the tibial articular surface with a displaced meniscal flap located in the medial tibial gutter. 4. Small joint effusion. Approved by: Kwesi Gauthier M.D. on 03/07/2022 at 12:50
== END ==
PROVIDERS: PCP Physician Assistant; Referring Provider Physician Assistant; Visit Provider Physician Assistant
DX: M94.261 Chondromalacia, right knee (principal); M17.10 Unilateral primary osteoarthritis, unspecified knee; S83.241A Other tear of medial meniscus, current injury, right knee, initial encounter; S82.001A Unspecified fracture of right patella, initial encounter for closed fracture; M25.461 Effusion, right knee; Z13.820 Encounter for screening for osteoporosis; Z78.0 Asymptomatic menopausal state
CPT/HCPCS: 73721; 77080

== ENCOUNTER → 2022-03-18 14:48 | Outpatient (CLI) | payer OTHER, SELFPAY | PROVIDERS: PCP Physician Assistant; Visit Provider Physician Assistant | DX: M54.9 Dorsalgia, unspecified (principal) | CPT/HCPCS: 87086 ==

== ENCOUNTER → 2022-03-20 11:05 | Outpatient (CLI) | payer OTHER, SELFPAY ==
[2022-03-20 18:28] LABS: Alanine Aminotransferase 29 IU/L (<35); Albumin 4.2 g/dL (3.5-5.0); Albumin Globulin Ratio 1.6 (1.0-2.8); Alkaline Phosphatase 83 U/L (38-126); Aspartate Aminotransferase 32 IU/L (14-36); BUN Creatinine Ratio 20.8 (6-22); Bilirubin Total 0.5 mg/dL (0.2-1.3); Blood Urea Nitrogen 15 mg/dL (7-17); Calcium 9.1 mg/dL (8.4-10.2); Carbon Dioxide 27 mmol/L (22-32); Chloride 103 mmol/L (98-107); Cholesterol 125 mg/dL (140-199); Estimated Glomerular Filt Rate > 60 mL/min (>60); Globulin 2.7 g/dL (1.7-4.1); Glucose 89 mg/dL (80-110); HDL Cholesterol 35 mg/dL (40-60); HEMOLYSIS < 15 (0-50); LDL Cholesterol Calculated 68 mg/dL (<100); Potassium 3.9 mmol/L (3.4-5.1); Sodium 141 mmol/L (137-145); Total Protein 6.9 g/dL (6.3-8.2); Triglycerides 112 mg/dL (35-150); Uric Acid 7.1 mg/dL (2.5-6.2)
[2022-03-20 18:33] LABS: Hemoglobin A1C% w Est Avg Glu 5.6 % (4.0-6.0)
[2022-03-20 18:50] LABS: Add Manual Diff / Slide Review NO; Basophils Absolute Auto 0 /uL (0-100); Eosinophils Absolute Auto 100 /uL (0-450); Eosinophils Percent Auto 2.5 % (2-4); Hematocrit 40.2 % (36-46); Hemoglobin 13.4 g/dL (12.0-16.0); Lymphocytes Absolute Auto 1200 /uL (1100-4500); Lymphocytes Percent Auto 23.8 % (25-40); Mean Corpuscular HGB Conc 33.3 % (30-36); Mean Corpuscular Hemoglobin 28.4 PG (26-34); Mean Corpuscular Volume 85.2 fL (80-100); Monocytes Absolute Auto 300 /uL (0-900); Monocytes Percent Auto 6.3 % (3-14); Neutrophils Absolute Auto 3300 /uL (1500-7000); Neutrophils Percent Auto 66.4 % (50-75); Red Blood Cell Count 4.71 X10^6/uL (4.0-5.2); Red Cell Distribution Width 13.3 % (11.6-14.8); White Blood Cell Count 4.9 X10^3/uL (4.5-11.0)
[2022-03-28 15:08] LABS: Size <1 mm (.)
== END ==
PROVIDERS: PCP Physician Assistant; Visit Provider Physician Assistant
DX: I10 Essential (primary) hypertension (principal); Z13.1 Encounter for screening for diabetes mellitus; Z13.220 Encounter for screening for lipoid disorders; R10.9 Unspecified abdominal pain; Z87.442 Personal history of urinary calculi; R31.9 Hematuria, unspecified
CPT/HCPCS: 80053; 80061; 82365; 83036; 84550; 85025

== ENCOUNTER → 2022-03-26 10:09 | Outpatient (CLI) | payer OTHER, SELFPAY ==
--- NOTE | 2022-03-26 10:10 | DI.CT.S_ITS ---
PROCEDURE: CT ABDOMEN PELVIS WO CON INDICATIONS: left flank pain, history kidney stones TECHNIQUE: Axial sections were acquired from the lung bases to the pubic symphysis. Coronal and sagittal reformats were performed. For radiation dose reduction, the following was used: automated exposure control, adjustment of mA and/or kV according to patient size. COMPARISON: [facility] ([place]), CR, XR KUB, 03/20/2022, 10:23. FINDINGS: Image quality: Excellent. Lung bases: Unremarkable. Heart: No significant findings. URINARY: Right Kidney: No stones or hydronephrosis. Right Ureter: No hydroureter. Left Kidney: No stones or hydronephrosis. Left Ureter: No hydroureter. Bladder: Normal wall thickness. No stones. ABDOMEN: Liver: Unremarkable. Gallbladder: Unremarkable. Biliary ducts: Unremarkable. Pancreas: Unremarkable. Spleen: Unremarkable. Adrenal Glands: Unremarkable. Stomach and Bowel: Multiple diverticula are seen in the colon without signs of acute diverticulitis. The colon is underdistended. Small bowel loops are unremarkable. Peritoneum: No abnormal intraperitoneal fluid. No free air. Ventral Wall: No hernia. Abdominal Nodes: No enlarged retroperitoneal or mesenteric lymph nodes. Vessels: Aorta and inferior vena cava are normal in size. Mild aortic atherosclerotic calcifications. PELVIS: Pelvic Organs: Unremarkable. Pelvic Nodes: Unremarkable. Miscellaneous: No inguinal hernias are seen. Bones: Degenerative changes are seen in the spine. IMPRESSION: 1. No renal or ureteral calculus or hydronephrosis. 2. Mild colonic diverticulosis without signs of acute diverticulitis. 3. Apparent mild bowel wall thickening within the transverse, descending, and sigmoid colon may be secondary to underdistention or a mild nonspecific colitis. Approved by: Kwesi Gauthier M.D. on 03/26/2022 at 12:16
== END ==
PROVIDERS: PCP Physician Assistant; Referring Provider Physician Assistant; Visit Provider Physician Assistant
DX: K57.90 Diverticulosis of intestine, part unspecified, without perforation or abscess without bleeding (principal); R10.9 Unspecified abdominal pain; I70.0 Atherosclerosis of aorta; Z87.442 Personal history of urinary calculi
CPT/HCPCS: 74176

== ENCOUNTER → 2022-04-29 13:54 | Outpatient (CLI) | payer OTHER, SELFPAY ==
[2022-04-29 20:20] LABS: Uric Acid 4.4 mg/dL (2.5-6.2)
== END ==
PROVIDERS: PCP Physician Assistant; Visit Provider Physician Assistant
DX: E79.0 Hyperuricemia without signs of inflammatory arthritis and tophaceous disease (principal)
CPT/HCPCS: 84550

== ENCOUNTER → 2022-08-27 13:40 | Outpatient (CLI) | payer OTHER, SELFPAY ==
[2022-08-27 19:46] LABS: Add Manual Diff / Slide Review NO; Basophils Absolute Auto 100 /uL (0-100); Basophils Percent Auto 1.1 % (0-2); Eosinophils Absolute Auto 100 /uL (0-450); Eosinophils Percent Auto 1.8 % (2-4); Hematocrit 37.1 % (36-46); Hemoglobin 12.6 g/dL (12.0-16.0); Lymphocytes Absolute Auto 1600 /uL (1100-4500); Mean Corpuscular HGB Conc 33.9 % (30-36); Mean Corpuscular Hemoglobin 28.8 PG (26-34); Monocytes Absolute Auto 500 /uL (0-900); Neutrophils Absolute Auto 4800 /uL (1500-7000); Neutrophils Percent Auto 67.1 % (50-75); Platelet Count 191 X10^3/uL (150-400); Red Blood Cell Count 4.36 X10^6/uL (4.0-5.2); Red Cell Distribution Width 13.1 % (11.6-14.8); White Blood Cell Count 7.1 X10^3/uL (4.5-11.0)
[2022-08-27 19:49] LABS: BUN Creatinine Ratio 18.1 (6-22); Blood Urea Nitrogen 13 mg/dL (7-17); Calcium 9.7 mg/dL (8.4-10.2); Carbon Dioxide 31 mmol/L (22-32); Chloride 103 mmol/L (98-107); Estimated Glomerular Filt Rate > 60 mL/min (>60); Glucose 95 mg/dL (80-110); HEMOLYSIS < 15 (0-50); Potassium 4.2 mmol/L (3.4-5.1); Sodium 140 mmol/L (137-145)
[2022-08-28 23:07] LABS: x Labcorp Estim. Avg Glu (eAG) 117 mg/dL (.); x Labcorp Hemoglobin A1c 5.7 % (4.8-5.6)
== END ==
PROVIDERS: PCP Physician Assistant; Visit Provider Orthopaedic Surgery Foot and Ankle Surgery
DX: Z01.812 Encounter for preprocedural laboratory examination (principal); R73.9 Hyperglycemia, unspecified
CPT/HCPCS: 80048; 83036; 85025

== ENCOUNTER → 2022-12-11 14:23 | Outpatient (CLI) | payer OTHER, SELFPAY ==
[2022-12-11 19:45] LABS: BUN Creatinine Ratio 20.7 (6-22); Blood Urea Nitrogen 18 mg/dL (7-17); Calcium 10.1 mg/dL (8.4-10.2); Carbon Dioxide 31 mmol/L (22-32); Chloride 98 mmol/L (98-107); Estimated Glomerular Filt Rate > 60 mL/min (>60); Glucose 100 mg/dL (80-110); HEMOLYSIS < 15 (0-50); Potassium 3.7 mmol/L (3.4-5.1); Sodium 138 mmol/L (137-145)
== END ==
PROVIDERS: PCP Physician Assistant; Visit Provider Physician Assistant
DX: I10 Essential (primary) hypertension (principal)
CPT/HCPCS: 80048

== ENCOUNTER → 2023-05-05 09:10 | Outpatient (CLI) | payer OTHER, SELFPAY ==
[2023-05-05 20:04] LABS: Alanine Aminotransferase 21 IU/L (<35); Albumin 4.2 g/dL (3.5-5.0); Albumin Globulin Ratio 1.6 (1.0-2.8); Alkaline Phosphatase 72 U/L (38-126); Aspartate Aminotransferase 30 IU/L (14-36); Bilirubin Total 0.8 mg/dL (0.2-1.3); Blood Urea Nitrogen 15 mg/dL (7-17); Calcium 10.1 mg/dL (8.4-10.2); Carbon Dioxide 29 mmol/L (22-32); Chloride 98 mmol/L (98-107); Cholesterol 117 mg/dL (140-199); Estimated Glomerular Filt Rate > 60 mL/min (>60); Globulin 2.7 g/dL (1.7-4.1); Glucose 90 mg/dL (80-110); HDL Cholesterol 38 mg/dL (40-60); HEMOLYSIS < 15 (0-50); LDL Cholesterol Calculated 61 mg/dL (<100); Potassium 4.1 mmol/L (3.4-5.1); Sodium 137 mmol/L (137-145); Total Protein 6.9 g/dL (6.3-8.2); Triglycerides 89 mg/dL (35-150); Uric Acid 6.5 mg/dL (2.5-6.2)
[2023-05-05 20:07] LABS: Hemoglobin A1C% w Est Avg Glu 5.3 % (4.0-6.0)
[2023-05-05 20:12] LABS: Add Manual Diff / Slide Review NO; Basophils Absolute Auto 100 /uL (0-100); Basophils Percent Auto 1.6 % (0-2); Eosinophils Absolute Auto 200 /uL (0-450); Eosinophils Percent Auto 3.4 % (2-4); Hematocrit 40.8 % (36-46); Lymphocytes Absolute Auto 1000 /uL (1100-4500); Lymphocytes Percent Auto 18.9 % (25-40); Mean Corpuscular HGB Conc 34.2 % (30-36); Mean Corpuscular Hemoglobin 28.7 PG (26-34); Monocytes Absolute Auto 400 /uL (0-900); Monocytes Percent Auto 8.2 % (3-14); Neutrophils Absolute Auto 3700 /uL (1500-7000); Neutrophils Percent Auto 67.9 % (50-75); Platelet Count 244 X10^3/uL (150-400); Red Blood Cell Count 4.86 X10^6/uL (4.0-5.2); Red Cell Distribution Width 13.2 % (11.6-14.8); White Blood Cell Count 5.5 X10^3/uL (4.5-11.0)
[2023-05-05 20:33] LABS: TSH w/ Reflex to FT4 1.36 uIU/mL (0.47-4.68)
== END ==
PROVIDERS: PCP Family Medicine; Visit Provider Family Medicine
DX: R73.03 Prediabetes (principal); E79.0 Hyperuricemia without signs of inflammatory arthritis and tophaceous disease; E78.5 Hyperlipidemia, unspecified; I10 Essential (primary) hypertension
CPT/HCPCS: 80053; 80061; 83036; 84443; 84550; 85025

== ENCOUNTER → 2023-11-11 09:33 | Outpatient (CLI) | payer OTHER, SELFPAY ==
--- NOTE | 2023-11-11 09:35 | DI.MRI.S_ITS ---
PROCEDURE: MR CERVICAL SPINE WO CON INDICATIONS: progressing pain and dysfunction. failed PT TECHNIQUE: Noncontrast sagittal T1 spin echo and T2 fast spin echo, sagittal STIR, foraminal oblique sagittal T2 fast spin echo, and axial gradient echo or T2 fast spin echo through the cervical spine. COMPARISON: None. FINDINGS: Image quality: Excellent. Alignment and Curvature: Straightening of the normal cervical lordosis. Bone Marrow: Marrow demonstrates normal overall signal. Spinal Cord: Visualized spinal cord has normal size and signal. No cerebellar tonsillar herniation. Paraspinous Soft Tissues: No paravertebral masses. Prevertebral soft tissues are normal in thickness. C2-C3: Mild central disc protrusion. No central canal or neural foraminal stenosis. C3-C4: Disc desiccation and small central disc protrusion. Facet and uncovertebral arthropathy. No central canal stenosis. Mild left neural foraminal stenosis. No right neural foraminal stenosis. C4-C5: Disc desiccation. Facet and uncovertebral arthropathy. No significant central canal or neural foraminal stenosis. C5-C6: Disc desiccation and mild posterior disc osteophyte complex. Facet and uncovertebral arthropathy. No significant central canal or neural foraminal stenosis. C6-C7: Disc desiccation and mild posterior disc osteophyte complex, asymmetric to the right. No significant central canal stenosis. Facet and uncovertebral arthropathy without significant neural foraminal stenosis. C7-T1: No central canal or neural foraminal stenosis. IMPRESSION: Mild multilevel degenerative changes of the cervical spine. Mild left neural foraminal stenosis at C3-C4. Otherwise, the central canal and neural foramina are patent throughout. Dictated by: Trever Osborne M.D. on 11/11/2023 at 12:01 Approved by: Trever Osborne M.D. on 11/11/2023 at 12:03
== END ==
PROVIDERS: PCP Family Medicine; Referring Provider Physician Assistant; Visit Provider Physician Assistant
DX: M47.22 Other spondylosis with radiculopathy, cervical region (principal); M48.02 Spinal stenosis, cervical region; M46.92 Unspecified inflammatory spondylopathy, cervical region; M25.511 Pain in right shoulder; M25.512 Pain in left shoulder
CPT/HCPCS: 72141

== ENCOUNTER → 2023-11-26 09:25 | Outpatient (CLI) | payer OTHER, SELFPAY | PROVIDERS: Family Provider Family Medicine; PCP Family Medicine; Referring Provider Family Medicine; Visit Provider Family Medicine | DX: R20.2 Paresthesia of skin (principal); M79.641 Pain in right hand; M79.642 Pain in left hand | CPT/HCPCS: 95886; 95912 ==

== ENCOUNTER → 2024-01-06 08:54 | Outpatient (CLI) | payer OTHER, SELFPAY ==
--- NOTE | 2024-01-06 08:55 | DI.MRI.S_ITS ---
PROCEDURE: MR SHOULDER LT WO CON INDICATIONS: failed PT leftshoulder pain, sig decrease ROM and worsening TECHNIQUE: Noncontrast oblique coronal T2 fast spin echo with fat saturation, oblique sagittal T1 spin echo and T2 fast spin echo with fat saturation, axial T1 spin echo and T2 fast spin echo with fat saturation through the shoulder. COMPARISON: None. FINDINGS: Image quality: Excellent. Rotator cuff: Low-grade articular surface partial-thickness tear involving distal supraspinatus and anterior to mid fibers at its insertion on the humeral head extending to musculotendinous junction. Distal infraspinatus and subscapularis tendinosis is seen. No full-thickness rotator cuff tendon rupture. Sagittal images demonstrate mild supraspinatus muscle atrophy. Bones and bursae: No bone marrow contusions or fractures. [id number] acromioclavicular joint osteoarthritic changes are seen with joint space narrowing, subchondral sclerosis and downward osteophyte formation depressing the musculotendinous junction of supraspinatus. Type 1 acromion without an os acromiale. Small amount of joint effusion and subacromial subdeltoid bursal fluid is seen, no loose bodies. Capsule and soft tissues: There is fraying of superior anterior glenoid labrum with T2 hyperintense signal suggestive of superior anterior labral tear. The long head of the biceps tendon appears thickened. The rotator interval appears normal, without fibrosis. The coracohumeral ligament is normal in thickness. IMPRESSION: 1. Low-grade articular surface partial-thickness tear involving distal supraspinatus extending to musculotendinous junction. Distal infraspinatus and subscapularis. No full-thickness rotator cuff tendon rupture. Mild supraspinatus muscle atrophy. 2. [id number] acromioclavicular joint osteoarthritis. No fracture or dislocation. Small amount of joint effusion and subacromial subdeltoid bursal fluid, no loose bodies. 3. Suggestion of subtle superior anterior glenoid labral tear. 4. Proximal long head of biceps tendinosis. Dictated by: Noah Limon M.D. on 01/06/2024 at 11:15 Approved by: Noah Limon M.D. on 01/06/2024 at 11:27
== END ==
PROVIDERS: Family Provider Family Medicine; PCP Family Medicine; Referring Provider Orthopaedic Surgery; Visit Provider Orthopaedic Surgery
DX: M75.112 Incomplete rotator cuff tear or rupture of left shoulder, not specified as traumatic (principal); M19.012 Primary osteoarthritis, left shoulder; M25.412 Effusion, left shoulder; M25.512 Pain in left shoulder; G89.29 Other chronic pain
CPT/HCPCS: 73221

== ENCOUNTER → 2024-05-02 09:04 | Outpatient (CLI) | payer OTHER, SELFPAY ==
[2024-05-02 19:04] LABS: Add Manual Diff / Slide Review NO; Basophils Absolute Auto 100 /uL (0-100); Basophils Percent Auto 0.9 % (0-2); Eosinophils Absolute Auto 200 /uL (0-450); Eosinophils Percent Auto 3.9 % (2-4); Hematocrit 40.1 % (36-46); Hemoglobin 13.5 g/dL (12.0-16.0); Lymphocytes Absolute Auto 1500 /uL (1100-4500); Lymphocytes Percent Auto 24.2 % (25-40); Mean Corpuscular HGB Conc 33.7 % (30-36); Mean Corpuscular Hemoglobin 30.2 PG (26-34); Mean Corpuscular Volume 89.6 fL (80-100); Monocytes Absolute Auto 500 /uL (0-900); Monocytes Percent Auto 8.1 % (3-14); Neutrophils Absolute Auto 3800 /uL (1500-7000); Neutrophils Percent Auto 62.9 % (50-75); Platelet Count 189 X10^3/uL (150-400); Red Blood Cell Count 4.48 X10^6/uL (4.0-5.2); Red Cell Distribution Width 13.6 % (11.6-14.8)
[2024-05-02 19:13] LABS: Alanine Aminotransferase 36 IU/L (<35); Albumin 3.9 g/dL (3.5-5.0); Albumin Globulin Ratio 1.6 (1.0-2.8); Alkaline Phosphatase 76 U/L (38-126); Aspartate Aminotransferase 39 IU/L (14-36); BUN Creatinine Ratio 15.9 (6-22); Bilirubin Total 0.4 mg/dL (0.2-1.3); Blood Urea Nitrogen 14 mg/dL (7-17); Calcium 9.8 mg/dL (8.4-10.2); Carbon Dioxide 32 mmol/L (22-32); Chloride 103 mmol/L (98-107); Cholesterol 172 mg/dL (140-199); Estimated Glomerular Filt Rate > 60 mL/min (>60); Globulin 2.5 g/dL (1.7-4.1); Glucose 84 mg/dL (80-110); HDL Cholesterol 68 mg/dL (40-60); HEMOLYSIS < 15 (0-50); LDL Cholesterol Calculated 93 mg/dL (<100); Potassium 4.2 mmol/L (3.4-5.1); Sodium 136 mmol/L (137-145); Total Protein 6.4 g/dL (6.3-8.2); Triglycerides 54 mg/dL (35-150)
[2024-05-02 19:17] LABS: Hemoglobin A1C% w Est Avg Glu 5.2 % (4.0-6.0)
[2024-05-02 19:45] LABS: Thyroid Stimulating Hormone 3.09 uIU/mL (0.47-4.68)
== END ==
PROVIDERS: Family Provider Family Medicine; PCP Family Medicine; Visit Provider Family Medicine
DX: E88.810 Metabolic syndrome (principal); R73.03 Prediabetes; E78.5 Hyperlipidemia, unspecified; E79.0 Hyperuricemia without signs of inflammatory arthritis and tophaceous disease; Z87.442 Personal history of urinary calculi; I10 Essential (primary) hypertension
CPT/HCPCS: 80053; 80061; 83036; 84443; 84550; 85025

== ENCOUNTER → 2024-11-22 10:51 | Outpatient (CLI) | payer OTHER, SELFPAY ==
[2024-11-22 19:49] LABS: Alanine Aminotransferase 26 IU/L (<35); Albumin 4.2 g/dL (3.5-5.0); Albumin Globulin Ratio 1.7 (1.0-2.8); Alkaline Phosphatase 80 U/L (38-126); Blood Urea Nitrogen 13 mg/dL (7-17); Calcium 9.5 mg/dL (8.4-10.2); Carbon Dioxide 27 mmol/L (22-32); Chloride 100 mmol/L (98-107); Estimated Glomerular Filt Rate > 60 mL/min (>60); Globulin 2.5 g/dL (1.7-4.1); Glucose 80 mg/dL (70-99); HEMOLYSIS < 15 (0-50); Potassium 4.3 mmol/L (3.4-5.1); Sodium 137 mmol/L (137-145); Total Protein 6.7 g/dL (6.3-8.2)
[2024-11-22 20:28] LABS: Ferritin 72 ng/mL (11-264)
[2024-11-22 20:42] LABS: HEMOLYSIS < 15 (0-50); Hemoglobin A1C% w Est Avg Glu 5.3 % (4.0-6.0)
[2024-11-22 20:51] LABS: Iron 85 ug/dL (37-170)
[2024-11-22 20:59] LABS: Percent Iron Saturation 23 % (15-50); Total Iron Binding Capacity 373 ug/dL (265-497); Transferrin 299 mg/dL (206-381)
[2024-11-24 02:36] LABS: Hepatitis A Antibody IgM Negative (Negative); Hepatitis B Core Antibody IgM Negative (Negative); Hepatitis C Antibody Non Reactive (Non Reactive)
== END ==
PROVIDERS: PCP Family Medicine; Visit Provider Family Medicine
DX: R79.89 Other specified abnormal findings of blood chemistry (principal); E78.5 Hyperlipidemia, unspecified; I10 Essential (primary) hypertension; E88.810 Metabolic syndrome; R73.03 Prediabetes; E66.9 Obesity, unspecified
CPT/HCPCS: 80053; 80074; 82728; 83036; 83540; 83550; 83721; 86038